=== PATIENT | female | born 1980 | race Caucasian/White ===

== ENCOUNTER 2023-04-30 22:52 | Observation (INO) | payer BC ==
[2023-04-30] MEDS ORDERED: Sodium Chloride 0.9% 1000 ML 1,000 ML ONE (23:24)
[2023-04-30] MEDS ORDERED: Zofran 4 MG/2 ML VIAL ONE (23:24)
[2023-04-30] MEDS ORDERED: MORPHINE SULFATE 4 MG INJ ONE (23:24)
[2023-04-30] MEDS: Zofran 4 MG/2 ML VIAL IV ONE (23:26)
[2023-04-30] MEDS: Sodium Chloride 0.9% 1000 ML 1,000 ML IV STA (23:29)
[2023-04-30] MEDS: MORPHINE SULFATE 4 MG INJ IV ONE (23:30)
--- NOTE | 2023-04-30 23:35 | ERPHSYRPT ---
- History of Present Illness Time Seen by Provider: 04/30/23 23:20 Historian: patient Exam Limitations: no limitations Physician History: 42yo f presents with RUQ abdominal pain, N/V that worsened today while at work roughly 3hrs ago. Pt reports hx of gallstones x 3-4mo w/ outpatient management, has not seen a general surgeon yet. Pt reports significant RUQ pain, diaph oresis, multiple episodes of NBNB emesis in the past 2h. Pt reports the pain radiates into her mid back and right shoulder. Pt currently denies cp, soa. Timing/Duration: today, sudden Activities at Onset: activity Quality: sharpness, stabbing Abdominal Pain Onset Location: RUQ, epigastric Pain Radiation: shoulder, back Severity of Pain-Max: severe Severity of Pain-Current: severe Modifying Factors: Improves With: nothing Associated Symptoms: diaphoresis, nausea, vomiting Previous symptoms: same symptoms as today Body Map: 1 - RUQ and epigastric pain 2 - mid back/scapula pain Allergies/Adverse Reactions: prednisone Allergy (Intermediate, Verified 04/30/23 23:11) Vomiting Home Medications: Docusate Sodium [Colace] 200 mg PO DAILY 04/30/23 [History] Folic Acid/Vit B Complex and C [Super B-Complex Folic-Vit C Tb] 400 mcg PO DAILY 04/30/23 [History] Losartan/Hydrochlorothiazide [Losartan-Hctz 50-12.5 mg Tab] 1 each PO DAILY 04/30/23 [History] Metformin HCl Xr 500 mg [Glucophage XR 500 MG] 1,000 mg PO DAILY 04/30/23 [History] Thyroid Med 5 mg PO DAILY 04/30/23 [History] Thyroid,Pork [Apple Peeler Operator Thyroid 120] 0.5 tab PO DAILY 04/30/23 [History] - Review of Systems Constitutional: Chills, No Fever Respiratory: No Symptoms Cardiac: No Symptoms Abdominal/Gastrointestinal: Abdominal Pain, Nausea, Vomiting Genitourinary Symptoms: No Symptoms - Female History Hx Now: No - Nursing Vital Signs Nursing Vital Signs: Initial Vital Signs Pulse Rate 97 H 04/30/23 23:11 Respiratory Rate 22 04/30/23 23:11 Blood Pressure 120/77 04/30/23 23:11 O2 Sat by Pulse Oximetry 100 04/30/23 23:11 Pain Scale Pain Intensity 10 - Physical Exam General Appearance: mild distress, alert Respiratory Exam: normal breath sounds, airway intact, No respiratory distress Cardiovascular Exam: normal heart sounds, tachycardia Gastrointestinal/Abdomen Exam: soft, normal bowel sounds, tenderness, No distention, No guarding, No rebound SpO2 Interpretation: normal SpO2: 100 O2 Delivery: Room Air Ordered Tests: Active Orders 24 hr Category Date Time Status IV Insertion STAT Care 04/30/23 23:20 Active Observation [Place in Observation] ROUTINE Care 05/01/23 01:52 Active ABDOMEN AND PELVIS W CONTRAST [CT] Stat Exams 04/30/23 23:21 Completed CBC W DIFF Stat Lab 04/30/23 23:20 Completed CMP Stat Lab 04/30/23 23:20 Completed CULTURE,URINE Stat Lab 04/30/23 23:20 Received LIPASE Stat Lab 04/30/23 23:20 Completed LIPID PROFILE Stat Lab 05/01/23 01:51 Ordered UA W/RFX UR CULTURE Stat Lab 04/30/23 23:20 Completed Transfer Order Routine Transfer 05/01/23 Ordered Medication Summary Generic Name Dose Route Start Last Admin Trade Name Freq PRN Reason Stop Dose Admin Sodium Chloride 1,000 mls @ 250 mls/hr 05/01/23 01:45 Sodium Chloride 0.9% 1000 Ml IV 05/31/23 01:44 .Q4H KIP Discontinued Medications Generic Name Dose Route Start Last Admin Trade Name Freq PRN Reason Stop Dose Admin Fentanyl Citrate 25 mcg 05/01/23 00:15 05/01/23 00:23 Fentanyl Citrate 100 Mcg/2 Ml* Vial IV 05/01/23 00:16 25 mcg STAT ONE Administration Fentanyl Citrate Confirm 05/01/23 00:21 Fentanyl Citrate 100 Mcg/2 Ml* Vial Administered 05/01/23 00:22 Dose 100 mcg .ROUTE .STK-MED ONE Hydromorphone HCl 1 mg 05/01/23 01:03 05/01/23 01:43 Hydromorphone 1 Mg/1ml Inj IV 05/01/23 01:04 1 mg STAT ONE Administration Hydromorphone HCl Confirm 05/01/23 01:42 Hydromorphone 1 Mg/1ml Inj Administered 05/01/23 01:43 Dose 1 mg .ROUTE .STK-MED ONE Sodium Chloride 1,000 mls @ 999 mls/hr 04/30/23 23:20 05/01/23 00:34 Sodium Chloride 0.9% 1000 Ml IV 05/01/23 00:20 Infused .Q1H1M STA Infusion Sodium Chloride Confirm 04/30/23 23:24 Sodium Chloride 0.9% 1000 Ml Administered 04/30/23 23:25 Dose 1,000 mls @ ud .ROUTE .STK-MED ONE Morphine Sulfate 4 mg 04/30/23 23:23 04/30/23 23:30 Morphine Sulfate 4 Mg/Ml Injection IV 04/30/23 23:24 4 mg STAT ONE Administration Morphine Sulfate Confirm 04/30/23 23:24 Morphine Sulfate 4 Mg/Ml Injection Administered 04/30/23 23:25 Dose 4 mg .ROUTE .STK-MED ONE Ondansetron HCl 4 mg 04/30/23 23:20 04/30/23 23:26 Ondansetron Hcl 4 Mg/2 Ml Vial IV 04/30/23 23:21 4 mg STAT ONE Administration Ondansetron HCl Confirm 04/30/23 23:24 Ondansetron Hcl 4 Mg/2 Ml Vial Administered 04/30/23 23:25 Dose 4 mg .ROUTE .STK-MED ONE Lab/Rad Data: Laboratory Result Diagrams 04/30/23 23:20 04/30/23 23:20 Laboratory Results 04/30/23 04/30/23 04/30/23 Range/Units 23:20 23:20 23:20 WBC 15.8 H (4.0-10.5) x10^3/uL RBC 5.23 (4.1-5.4) x10^6/uL Hgb 15.1 (12.0-16.0) g/dL Hct 45.2 (35-47) % MCV 86.4 (78-100) fL MCH 28.9 (26-32) pg MCHC 33.4 (32-36) g/dL RDW 11.9 (11.5-14.0) % Plt Count 476 H (150-450) x10^3/uL MPV 9.7 (7.5-11.0) fL Gran % 62.6 (36.0-66.0) % Immature Gran % (Auto) 0.7 H (0.00-0.4) % Nucleat RBC Rel Count 0.0 (0.00-0.1) % Eos # (Auto) 0.09 (0-0.5) x10^3/uL Immature Gran # (Auto) 0.11 H (0.00-0.03) x10^3u/L Absolute Lymphs (auto) 4.45 (1.0-4.6) x10^3/uL Absolute Monos (auto) 1.20 (0.0-1.3) x10^3/uL Absolute Nucleated RBC 0.00 (0.00-0.01) x10^3u/L Lymphocytes % 28.1 (24.0-44.0) % Monocytes % 7.6 (0.0-12.0) % Eosinophils % 0.6 (0.00-5.0) % Basophils % 0.4 (0.0-0.4) % Absolute Granulocytes 9.90 H (1.4-6.9) x10^3/uL Basophils # 0.06 (0-0.4) x10^3/uL Sodium 139 (137-145) mmol/L Potassium 3.2 L (3.5-5.1) mmol/L Chloride 102 (98-107) mmol/L Carbon Dioxide 26 (22-30) mmol/L Anion Gap 14.4 (5-15) MEQ/L BUN 14 (7-17) mg/dL Creatinine 0.77 (0.52-1.04) mg/dL Estimated GFR 98.1 ML/MIN Glucose 121 H (74-106) mg/dL Calcium 10.1 (8.4-10.2) mg/dL Total Bilirubin 2.70 H (0.2-1.3) mg/dL AST 288 H (14-36) U/L ALT 237 H (0-35) U/L Alkaline Phosphatase 165 H (38-126) U/L Serum Total Protein 8.6 H (6.3-8.2) g/dL Albumin 5.0 (3.5-5.0) g/dL Lipase [id number] H (23-300) U/L Urine Color Dark Yellow A (Yellow) Urine Appearance Cloudy A (Clear) Urine pH 7.0 (4.6-8.0) Ur Specific [place] 1.015 (1.005-1.030) Urine Protein 30 (Negative) Urine Glucose (UA) Negative (Negative) mg/dL Urine Ketones Negative (Negative) Urine Blood Negative (Negative) Urine Nitrite Negative (Negative) Urine Bilirubin Negative (Negative) Urine Urobilinogen 1.0 A (0.2) mg/dL Ur Leukocyte Esterase Small A (Negative) U Hyaline Cast (Auto) NONE SEEN (0-2) /LPF Urine Microscopic RBC 0-2 (0-5) /HPF Urine Microscopic WBC 6-10 A (0-5) /HPF Ur Epithelial Cells Many A (None Seen) /HPF Urine Bacteria Rare A (None Seen) /HPF Urine Culture Reflexed YES (NO) - Progress Progress: pain not gone completely Progress Note: 05/01/23 01:20 CT abd/pel 1. Mildly bulky and heterogenous pancreas with extensive peripancreatic fat stranding and free fluid consistent with acute pancreatitis. The score based on modified CT severity index is 4. Clinical correlation and follow-up is recommended. 2. Questionable wall calcification versus calculi in gallbladder fundus. 05/01/23 01:54 discussed admission for acute pancreatitis w/ Dr Meredith who accepts Will see patient in: hospital (observation) Counseled pt/family regarding: lab results, diagnosis, rad results Medical Desision Making - Discussion of managment Care discussed with:: hospitalist Reviewed:: Test results, Need for additional workup Agreed on:: Treatment plan, need for follow-up, place in obs Will see patient: in hospital - Diagnostic Testing Diagnostic test were ordered, analyzed, and reviewed by me: Yes Radiological Interpretation: Reviewed by me, Teleradiologist Report - Risk of complications The pt has a mod risk of morbidity or mortality based on: Need for prescription drug management The pt has a high risk of morbidity or mortality based on: Decision regarding hospitilization or escalation of hosp level of care - Departure Departure Disposition: Observation Clinical Impression: Acute pancreatitis Qualifiers: Pancreatitis type: unspecified pancreatitis type Acute pancreatitis complication: unspecified Qualified Code(s): K85.90 - Acute pancreatitis without necrosis or infection, unspecified Condition: Stable Critical Care Time: No [facility] - Follow up/PCP as directed
[2023-04-30 23:49] LABS: BASOPHIL % 0.4 % (0.0-0.4); Basophil (Absolute #) 0.06 x10^3/uL (0-0.4); Eosinophil % 0.6 % (0.00-5.0); Eosinophil (Absolute #) 0.09 x10^3/uL (0-0.5); Hematocrit 45.2 % (35-47); Hemoglobin 15.1 g/dL (12.0-16.0); IMMATURE GRAN # 0.11 x10^3u/L (0.00-0.03); IMMATURE GRAN % 0.7 % (0.00-0.4); Lymphocyte (Absolute #) 4.45 x10^3/uL (1.0-4.6); Lymphocytes % 28.1 % (24.0-44.0); Mean Cell Volume 86.4 fL (78-100); Mean Corpuscular Hemoglobin 28.9 pg (26-32); Mean Corpuscular Hgb Concent. 33.4 g/dL (32-36); Mean Platelet Volume 9.7 fL (7.5-11.0); Monocytes % 7.6 % (0.0-12.0); Neutrophil % 62.6 % (36.0-66.0); Platelet Count 476 x10^3/uL (150-450); Red Blood Count 5.23 x10^6/uL (4.1-5.4); Red Cell Distribution Width 11.9 % (11.5-14.0); White Blood Count 15.8 x10^3/uL (4.0-10.5)
[2023-05-01 00:05] LABS: ANION GAP 14.4 MEQ/L (5-15); BILIRUBIN,TOTAL 2.7 mg/dL (0.2-1.3); Calcium 10.1 mg/dL (8.4-10.2); Creatinine 1 0.77 mg/dL (0.52-1.04); EST GLOMERULAR FILTRATION RATE 98.1 ML/MIN; Potassium 3.2 mmol/L (3.5-5.1); Total Protein 8.6 g/dL (6.3-8.2)
[2023-05-01] MEDS ORDERED: SUBLIMAZE 100 MCG/2 ML ONE (00:21)
[2023-05-01] MEDS: SUBLIMAZE 100 MCG/2 ML IV ONE (00:23)
[2023-05-01 00:40] LABS: Appearance Cloudy (Clear); Bacteria Rare /HPF (None Seen); Bilirubin Negative (Negative); Blood Negative (Negative); Epithelial Cells Many /HPF (None Seen); Glucose, Urine Negative (Negative); Hyaline Casts NONE SEEN /LPF (0-2); Ketones Negative (Negative); Leukocyte Esterase Small (Negative); Nitrite Negative (Negative); Protein,Urine Dip 30 (Negative); RBC 0-2 /HPF (0-5); Specific Gravity 1.015 (1.005-1.030)
[2023-05-01 00:49] LABS: ADD URINE CULTURE? YES (NO)
--- NOTE | 2023-05-01 01:17 | XRAY ---
CLINICAL HISTORY: abdominal pain TECHNIQUE: Multiple axial sections of the abdomen and pelvis were acquired with intravenous contrast administration. Sagittal and coronal reformatted images were obtained. COMPARISON: None FINDINGS: Mildly bulky pancreas with heterogeneous enhancement. Extensive peripancreatic fat stranding and peripancreatic free fluid is seen. In addition, there is a few subcentimeter peripancreatic lymph nodes. The portal confluence and splenic veins are normal. Normal-sized liver showing homogenous enhancement. No focal or diffuse abnormalities were noted. No intrahepatic duct dilatation is seen. The portal vein is normal. The gallbladder is mildly distended. Two calcific foci are seen at the fundus of the gallbladder and may reflect adherent calculi versus wall calcification. The common bile duct is normal. Both adrenal glands and spleen appear normal. Both kidneys are normal in size, location, and axis. No hydronephrosis, calculus or cyst is seen on either side. The urinary bladder is normally distended. No abnormal wall thickening or calculus is seen. The uterus and both adnexa are within normal limits. There is mild parametrial vascular congestion. The stomach and distal esophagus appear unremarkable. There is mild wall thickening of the second part of the duodenum, likely reactionary. Otherwise, the small bowel loops appear grossly normal. No acute bowel obstruction or ileus. The large bowel loops distal to the ascending colon are collapsed. The appendix is not discretely identified however there is no signs of the lower abdominal quadrant to suggest the acute process. The vascular structures enhance normally. No evidence of enlarged mesenteric lymph nodes. No gross ascites or free intraperitoneal air is seen. Visualized bones are grossly normal. Both lung bases are clear. The cardiac size is normal. IMPRESSION: 1. Mildly bulky and heterogenous pancreas with extensive peripancreatic fat stranding and free fluid consistent with acute pancreatitis. The score based on modified CT severity index is 4. Clinical correlation and follow-up is recommended. 2. Questionable wall calcification versus calculi in gallbladder fundus. [facility] ER was called at [phone] at 12:11 AM COMPUTER SYSTEMS INTEGRATOR, 04/29/2023 and results were verbally communicated to the [facility]. Electronically Signed by: Dakota Wilkerson MD. (05/01/2023 01:12:51 EST)
[2023-05-01] MEDS ORDERED: Hydromorphone 1 mg/ml Injection ONE (01:42)
[2023-05-01] MEDS: Hydromorphone 1 mg/ml Injection IV ONE (01:43)
--- NOTE | 2023-05-01 02:46 | PCM.HP ---
History of Present Illness - Chief Complaint Chief Complaint: acute pancreatitis History of Present Illness: is a 42 year old female with hx of metabolic syndrome, HTN, hypothyroidism with recent diagnosis of gallstones (203months prior) with conservative management and follow-up with surgery outpt. She came in tonight with c/o abdominal pain, mainly in RUQ qith radiation to upper back associated with nausea and vomiting. No diarrhea. No bloody emesis. No fever, chills, sweats. No SOB nor chest pain. The abominal pain has been coming and going over the past 1.5 months In ER work-up, lipase was 124K and CT abd confirms pancreatitis without CBD dilation nor obvious stones. So, she is being admitted for acute pancreatitis I saw her via telemedicine. She is resting, on RA, not septic looking. - Review of Systems Constitutional: No Symptoms Eyes: No Symptoms Ears, Nose, & Throat: No Symptoms Respiratory: No Symptoms Cardiac: No Symptoms Abdominal/Gastrointestinal: Abdominal Pain Genitourinary Symptoms: No Symptoms Musculoskeletal: No Symptoms Skin: No Symptoms Neurological: No Symptoms Psychological: No Symptoms Endocrine: No Symptoms Hematologic/Lymphatic: No Symptoms Immunological/Allergic: No Symptoms Medications & Allergies Home Medications: Home Medication List Docusate Sodium [Colace] 200 mg PO DAILY 04/30/23 [History Confirmed 04/30/23] Folic Acid/Vit B Complex and C [Super B-Complex Folic-Vit C Tb] 400 mcg PO DAILY 04/30/23 [History Confirmed 04/30/23] Losartan/Hydrochlorothiazide [Losartan-Hctz 50-12.5 mg Tab] 1 each PO DAILY 04/30/23 [History Confirmed 04/30/23] Metformin HCl Xr 500 mg [Glucophage XR 500 MG] 1,000 mg PO DAILY 04/30/23 [History Confirmed 04/30/23] Thyroid Med 5 mg PO DAILY 04/30/23 [History Confirmed 04/30/23] Thyroid,Pork [Cable Installer Repairer Thyroid 120] 0.5 tab PO DAILY 04/30/23 [History Confirmed 04/30/23] Allergies/Adverse Reactions: Allergies Allergy/AdvReac Type Severity Reaction Status Date / Time prednisone Allergy Intermediate Vomiting Verified 04/30/23 23:11 - Past Medical History Past Medical History: Yes Neurological History: No Pertinent History ENT History: No Pertinent History Cardiac History: High Cholesterol, Hypertension Respiratory History: Asthma Endocrine Medical History: Hypothyroidism, Other Musculoskelatal History: No Pertinent History GI Medical History: Gallbladder Disease History: No Pertinent History Pyscho-Social History: Depression Reproductive Disorders: No Pertinent History Comment: adi's. prediabetes - Female History Hx Last Menstrual Period: 04/15/23 Are you now?: No - Past Surgical History Past Surgical History: Yes Neuro Surgical History: No Pertinent History Cardiac History: No Pertinent History Respiratory Surgery: No Pertinent History GI Surgical History: No Pertinent History Genitourinary Surgical Hx: No Pertinent History Musculskeletal Surgical Hx: Orthopedic Surgery Female Surgical History: Tubal Ligation Other Surgical History: TKR bilat eyes. neck radiculopathy C6-C7 with titanium place in neck Significant Family History: no pertinent family hx - Social History Smoking Status: Former smoker Exposure to second hand smoke: No Alcohol: Occasionally Drug Use: none - Physical Exam Vital Signs: Vital Signs - 24 hr Temp Pulse Resp BP BP Pulse Ox 05/01/23 02:30 93 H 20 166/97 98 05/01/23 02:00 100 H 16 151/94 98 05/01/23 01:58 100 05/01/23 01:30 89 20 143/108 94 L 05/01/23 01:00 92 H 18 134/105 97 05/01/23 00:30 89 20 153/102 98 05/01/23 00:25 92 H 18 145/95 100 04/30/23 23:30 93 H 18 113/87 99 04/30/23 23:14 97.5 F 107 H 24 120/77 98 04/30/23 23:11 97 H 22 120/77 100 General Appearance: no apparent distress Neurologic Exam: alert, oriented x 3, cooperative Eye Exam: PERRL/EOMI Ears, Nose, Throat Exam: normal ENT inspection Neck Exam: normal inspection, full range of motion Respiratory Exam: normal breath sounds, lungs clear Cardiovascular Exam: regular rate/rhythm, normal heart sounds Gastrointestinal/Abdomen Exam: soft, normal bowel sounds, tenderness Pelvic Exam: deferred Rectal Exam: deferred Back Exam: normal inspection Extremity Exam: normal inspection Skin Exam: normal color Results - Labs Lab/Micro Results: Lab Results-Last 24 Hours 04/30/23 04/30/23 04/30/23 Range/Units 23:20 23:20 23:20 WBC 15.8 H (4.0-10.5) x10^3/uL RBC 5.23 (4.1-5.4) x10^6/uL Hgb 15.1 (12.0-16.0) g/dL Hct 45.2 (35-47) % MCV 86.4 (78-100) fL MCH 28.9 (26-32) pg MCHC 33.4 (32-36) g/dL RDW 11.9 (11.5-14.0) % Plt Count 476 H (150-450) x10^3/uL MPV 9.7 (7.5-11.0) fL Gran % 62.6 (36.0-66.0) % Immature Gran % (Auto) 0.7 H (0.00-0.4) % Nucleat RBC Rel Count 0.0 (0.00-0.1) % Eos # (Auto) 0.09 (0-0.5) x10^3/uL Immature Gran # (Auto) 0.11 H (0.00-0.03) x10^3u/L Absolute Lymphs (auto) 4.45 (1.0-4.6) x10^3/uL Absolute Monos (auto) 1.20 (0.0-1.3) x10^3/uL Absolute Nucleated RBC 0.00 (0.00-0.01) x10^3u/L Lymphocytes % 28.1 (24.0-44.0) % Monocytes % 7.6 (0.0-12.0) % Eosinophils % 0.6 (0.00-5.0) % Basophils % 0.4 (0.0-0.4) % Absolute Granulocytes 9.90 H (1.4-6.9) x10^3/uL Basophils # 0.06 (0-0.4) x10^3/uL Sodium 139 (137-145) mmol/L Potassium 3.2 L (3.5-5.1) mmol/L Chloride 102 (98-107) mmol/L Carbon Dioxide 26 (22-30) mmol/L Anion Gap 14.4 (5-15) MEQ/L BUN 14 (7-17) mg/dL Creatinine 0.77 (0.52-1.04) mg/dL Estimated GFR 98.1 ML/MIN Glucose 121 H (74-106) mg/dL Calcium 10.1 (8.4-10.2) mg/dL Total Bilirubin 2.70 H (0.2-1.3) mg/dL AST 288 H (14-36) U/L ALT 237 H (0-35) U/L Alkaline Phosphatase 165 H (38-126) U/L Serum Total Protein 8.6 H (6.3-8.2) g/dL Albumin 5.0 (3.5-5.0) g/dL Lipase [id number] H (23-300) U/L Urine Color Dark Yellow A (Yellow) Urine Appearance Cloudy A (Clear) Urine pH 7.0 (4.6-8.0) Ur Specific [place] 1.015 (1.005-1.030) Urine Protein 30 (Negative) Urine Glucose (UA) Negative (Negative) mg/dL Urine Ketones Negative (Negative) Urine Blood Negative (Negative) Urine Nitrite Negative (Negative) Urine Bilirubin Negative (Negative) Urine Urobilinogen 1.0 A (0.2) mg/dL Ur Leukocyte Esterase Small A (Negative) U Hyaline Cast (Auto) NONE SEEN (0-2) /LPF Urine Microscopic RBC 0-2 (0-5) /HPF Urine Microscopic WBC 6-10 A (0-5) /HPF Ur Epithelial Cells Many A (None Seen) /HPF Urine Bacteria Rare A (None Seen) /HPF Urine Culture Reflexed YES (NO) - Radiology Impressions Radiology Exams & Impressions: Radiology Procedures Category Date Time Status ABDOMEN AND PELVIS W CONTRAST [CT] Stat Exams 04/30/23 23:21 Completed Assessment/Plan (1) Acute pancreatitis Current Visit: Yes Status: Acute Qualifiers: Pancreatitis type: unspecified pancreatitis type Acute pancreatitis complication: unspecified Qualified Code(s): K85.90 - Acute pancreatitis without necrosis or infection, unspecified Assessment & Plan: Lipase 124K, CT confirms. However, it did not mention cholelithiasis nor cholecystitis. Still concerning for obstructive process given recent gallstones diagnosis. If available, will likely need MRCP, GI consult. For tonight, NPO, pain manage Check lipids Code(s): K85.90 - ACUTE PANCREATITIS WITHOUT NECROSIS OR INFECTION, UNSP (2) Leukocytosis Current Visit: Yes Status: Acute Assessment & Plan: WBC 15K. Likelyua stress reaction. No obvious source of infection seen. Monitor WBC trend Code(s): D72.829 - ELEVATED WHITE BLOOD CELL COUNT, UNSPECIFIED (3) Cholelithiasis Current Visit: Yes Status: Acute Assessment & Plan: Recent diagnosis - CT abd tonight did not mention cholecystitis (4) Hypokalemia Current Visit: Yes Status: Acute Assessment & Plan: K is 3.2, low due to GI loss from N/V. Will start LR and monitor K and replace as needed Code(s): E87.6 - HYPOKALEMIA (5) Essential (primary) hypertension Current Visit: Yes Status: Acute Assessment & Plan: Resume home meds. Monitor BP trend and adjust as needed Code(s): I10 - ESSENTIAL (PRIMARY) HYPERTENSION (6) Hypothyroidism Current Visit: Yes Status: Acute Assessment & Plan: Resume home thyroid meds Code(s): E03.9 - HYPOTHYROIDISM, UNSPECIFIED Telemedicine Encounter - Telemedicine Encounter Telemedicine Encounter: The entirety of this encounter was performed via Telemedicine" The pt gave me verbal consent to have this telemedicine visit
[2023-05-01] MEDS ORDERED: HUMALOG SQ PRN (02:51)
[2023-05-01] MEDS ORDERED: TRANDATE 100MG/20 ML MDV IV PRN (02:53)
[2023-05-01] MEDS ORDERED: Hydromorphone 1 mg/ml Injection IV PRN (02:53)
[2023-05-01] MEDS: Hydromorphone 1 mg/ml Injection IV PRN ×3 (03:24→21:43)
[2023-05-01] MEDS: Lactated Ringers 1,000 ML IV SCH (03:24)
[2023-05-01] MEDS: Zofran 4 MG/2 ML VIAL IV PRN (03:26)
[2023-05-01] MEDS: Sodium Chloride 0.9% 1000 ML 1,000 ML IV SCH (03:42)
[2023-05-01 05:33] LABS: Hematocrit 45.1 % (35-47); Hemoglobin 14.8 g/dL (12.0-16.0); Mean Cell Volume 87.4 fL (78-100); Mean Corpuscular Hemoglobin 28.7 pg (26-32); Mean Corpuscular Hgb Concent. 32.8 g/dL (32-36); Mean Platelet Volume 10.2 fL (7.5-11.0); Platelet Count 436 x10^3/uL (150-450); Red Blood Count 5.16 x10^6/uL (4.1-5.4); Red Cell Distribution Width 12.1 % (11.5-14.0); White Blood Count 20.4 x10^3/uL (4.0-10.5)
[2023-05-01 06:10] LABS: ALBUMIN 4.4 g/dL (3.5-5.0); ANION GAP 12.7 MEQ/L (5-15); BILIRUBIN,TOTAL 3.2 mg/dL (0.2-1.3); Creatinine 1 0.68 mg/dL (0.52-1.04); EST GLOMERULAR FILTRATION RATE 110.8 ML/MIN; Potassium 3.7 mmol/L (3.5-5.1); Risk Ratio 4.6; Total Protein 7.4 g/dL (6.3-8.2)
[2023-05-01] MEDS ORDERED: TRANDATE 20 MG/4 ML SYRINGE IV PRN (07:28)
[2023-05-01] MEDS ORDERED: Compazine 10 MG/2 ML IM PRN (08:17)
[2023-05-01] MEDS: Compazine 10 MG/2 ML IV PRN (08:36)
[2023-05-01 08:51] LABS: AMYLASE 802 U/L (30-110); ETHYL ALCOHOL < 10 mg/dL (0-10)
[2023-05-01 09:21] LABS: LIPASE 8604 U/L (23-300)
[2023-05-01] MEDS ORDERED: HEPARIN 5000 UNITS/0.5 ML (HIGH RISK MED) IV PRN (09:59)
[2023-05-01] MEDS ORDERED: NON-FORMULARY ITEM (Losartan/Hydrochlorothiazide [Losartan-Hctz 50-12.5 Mg Tab] 1 EACH Tab PO SCH (10:00)
[2023-05-01] MEDS ORDERED: Heparin 25,000 units/D5W: USE ORDER SET PROTO 25,000 UNITS/250 ML BAG IV SCH (10:00)
[2023-05-01] MEDS ORDERED: THYROID MED PO SCH (10:00)
[2023-05-01] MEDS ORDERED: THYROID PORK 120 MG PO SCH (10:00)
--- NOTE | 2023-05-01 10:17 | XRAY ---
Indication: Right upper quadrant pain. Pancreatitis. Gallstone. Two-dimensional right upper quadrant abdominal sonogram performed. Comparison: None Diffusely edematous prominent pancreas with small peripancreatic fluid favoring CT proven acute pancreatitis. No focal solid/cystic pancreas mass. Gallbladder normally distended with multiple tiny gallstones in the dependent portion, largest 6-7 mm. Abnormal gallbladder wall thickening up to 3.3 mm. No pericholecystic fluid. Common bile duct prominent measuring 8.1 mm. No intrahepatic biliary distention. Remaining visualized liver and right kidney are sonographically unremarkable. Right kidney measures 10.4 x 6.0 x 4.9 cm. Impression: 1. Cholelithiasis with gallbladder wall thickening. Rule out chronic cholecystitis. 2. Prominent common bile duct better evaluated with MRCP or ERCP. 3. CT proven pancreatitis.
[2023-05-01 10:36] LABS: Hematocrit 47.1 % (35-47); Hemoglobin 15.5 g/dL (12.0-16.0); Mean Cell Volume 87.5 fL (78-100); Mean Corpuscular Hemoglobin 28.8 pg (26-32); Mean Corpuscular Hgb Concent. 32.9 g/dL (32-36); Mean Platelet Volume 9.7 fL (7.5-11.0); Platelet Count 418 x10^3/uL (150-450); Red Blood Count 5.38 x10^6/uL (4.1-5.4); Red Cell Distribution Width 12.3 % (11.5-14.0); White Blood Count 19.8 x10^3/uL (4.0-10.5)
[2023-05-01] MEDS: HOLD METFORMIN PRODUCTS FOR 48 HOURS MC SCH (10:45)
[2023-05-01 10:51] LABS: INR 1.13 (0.8-3.0); PROTIME 12.2 SECONDS (9.4-12.5); PTT 24.2 SECONDS (25.1-36.5)
[2023-05-01] MEDS: HYDRODIURIL PO SCH (11:05)
[2023-05-01] MEDS: COZAAR PO SCH (11:05)
[2023-05-01] MEDS: NON-FORMULARY ITEM PO SCH ×2 (11:05)
[2023-05-01] MEDS: HEPARIN 5000 UNITS/0.5 ML (HIGH RISK MED) IV STA (11:31)
[2023-05-01] MEDS: Sodium Chloride 0.9% 1000 ML 1,000 ML IV STA ×3 (12:36→18:30)
--- NOTE | 2023-05-01 13:43 | XRAY ---
Indication: MRCP. Abdominal pain and vomiting. CT proven acute pancreatitis. Conventional MRCP performed. Comparison: None Gallbladder mildly distended with a few tiny gallstones in the dependent portion. Common bile duct measures 2-3 mm. Remaining biliary tree normal in course and caliber without filling defect. Pancreatic duct not distended. Diffusely prominent pancreas with peripancreatic and diffuse mesenteric edema favoring acute pancreatitis. Small abdominal free fluid presumed reactive. No walled off fluid collection. Noncontrasted stomach and visualized bowel loops appear nonobstructed. Visualized liver, spleen, adrenal glands, kidneys, aorta, and IVC are unremarkable. Impression: 1. Diffuse pancreatitis with free fluid as detailed. 2. Remaining MRCP is negative.
[2023-05-01 17:05] LABS: A-aADO2 32; ABG POTASSIUM 4.4 (3.5-5.1); ABG SITE RBA; ALLEN TEST OK? Yes; ARTERIAL BLD GAS O2 SATURATION 98.8 % (95-100); ARTERIAL BLOOD GAS BASE EXCESS -2.9 (-2.0-2.0); ARTERIAL BLOOD GAS FIO2 28 %; ARTERIAL BLOOD GAS PCO2 47 mmHg (35-45); ARTERIAL BLOOD GAS PO2 109 mmHg (75-100); ARTERIAL BLOOD GAS pH 7.31 (7.35-7.45); CARBOXYHEMOGLOBIN 1.4 % THgb (0.0-6.9); HCO3- 23.7 (22-28); HGB O2 SAT 96.5 g/dF (94-100); Methhemoglobin 0.9 % (1.4-1.5); paO2 pAO1 0.77
[2023-05-01 17:06] LABS: INFLUENZA A NEGATIVE (NEGATIVE); INFLUENZA B NEGATIVE (NEGATIVE); RESPIRATORY SYNCTIAL VIRUS NEGATIVE (NEGATIVE); SARS-CoV-2 Xpert Express NEGATIVE (NEGATIVE)
[2023-05-01] MEDS ORDERED: Sodium Chloride 0.9% 1000 ML 1,000 ML ONE (17:52)
[2023-05-01] MEDS: Unasyn 1.5GM Vial*** 1.5 G in Sodium Chloride 100ML MINI-BAG PLUS 100 ML IV SCH (17:55)
[2023-05-01 19:05] VITALS: RESP 16; TEMP 97.1
[2023-05-01 23:22] VITALS: BP 147/97; PULSE 126; O2SAT 96
--- NOTE | 2023-05-02 09:13 | PCM.DS ---
Discharge Summary Date of Admission: 05/01/23 02:52 Date of Discharge: 05/02/23 Admitting Physician: BRADEN CARDENAS DO Primary Care Provider: CHRISTAL MANZANARES Allergies Allergies prednisone Allergy (Intermediate, Verified 05/01/23 03:42) Vomiting Hospital Summary - Hospital Course Hospital Course: 05/02 is a 42 year old female with hx of metabolic syndrome, HTN, hypothyroidism with recent diagnosis of gallstones (203months prior) with co nservative management and follow-up with surgery outpt. She came in on 05/01 with c/o abdominal pain, mainly in RUQ with radiation to upper back associated with nausea and vomiting. No diarrhea. No bloody emesis. No fever, chills, sweats. No SOB nor chest pain. The abdominal pain has been coming and going over the past 1.5 months. ER work-up, lipase was 124K and CT abd confirms pancreatitis without CBD dilation nor obvious stones. So, she was admitted for acute pancreatitis. Us continued to show stones w/o obstruction. MRCP did not show any acute concerns. Lactic acid continues to increase with IVF boluses and IVF. She continues to be in quite a bit of pain despite IV pain meds. Pt [facility]. She denies CP, SOB. - Vitals & Intake/Output Vital Signs: Vital Signs Temperature 97.1 F 05/01/23 19:04 Pulse Rate 126 H 05/01/23 23:22 Respiratory Rate 16 05/02/23 00:00 Blood Pressure 147/97 05/01/23 23:22 O2 Sat by Pulse Oximetry 96 05/01/23 23:22 Intake & Output: Intake & Output 04/29/23 04/30/23 05/01/23 05/02/23 11:59 11:59 11:59 11:59 Intake Total 25 Output Total 800 Balance -800 25 Weight 82.9 kg - Lab Result Diagrams: 05/01/23 10:20 05/01/23 04:36 Lab Results-Last 24 Hrs: Lab Results-Last 24 Hours 05/01/23 05/01/23 05/01/23 Range/Units 05:32 09:34 10:20 WBC 19.8 H (4.0-10.5) x10^3/uL RBC 5.38 (4.1-5.4) x10^6/uL Hgb 15.5 (12.0-16.0) g/dL Hct 47.1 H (35-47) % MCV 87.5 (78-100) fL MCH 28.8 (26-32) pg MCHC 32.9 (32-36) g/dL RDW 12.3 (11.5-14.0) % Plt Count 418 (150-450) x10^3/uL MPV 9.7 (7.5-11.0) fL PT (9.4-12.5) SECONDS INR (0.8-3.0) APTT (25.1-36.5) SECONDS Puncture Site pCO2 (35-45) mmHg pO2 (75-100) mmHg Base Excess (-2.0-2.0) O2 Saturation (94-100) g/dF ABG pH (7.35-7.45) ABG HCO3 (22-28) ABG O2 Sat (Measured) (95-100) % Ran Test A-a Gradient a/A Ratio Hemoglobin Carboxyhemoglobin (0.0-6.9) % THgb Methemoglobin (1.4-1.5) % Potassium (3.5-5.1) Temperature C POC O2 Flow Rate % Lactic Acid 2.8 H (0.4-2.0) Amylase 802 H (30-110) U/L Lipase 8604 H (23-300) U/L Ethyl Alcohol < 10 (0-10) mg/dL Influenza Type A Ag (NEGATIVE) Influenza Type B Ag (NEGATIVE) RSV (PCR) (NEGATIVE) SARS-CoV-2 (PCR) (NEGATIVE) 05/01/23 05/01/23 05/01/23 Range/Units 10:20 14:15 14:30 WBC (4.0-10.5) x10^3/uL RBC (4.1-5.4) x10^6/uL Hgb (12.0-16.0) g/dL Hct (35-47) % MCV (78-100) fL MCH (26-32) pg MCHC (32-36) g/dL RDW (11.5-14.0) % Plt Count (150-450) x10^3/uL MPV (7.5-11.0) fL PT 12.2 (9.4-12.5) SECONDS INR 1.13 (0.8-3.0) APTT 24.2 L 25.6 (25.1-36.5) SECONDS Puncture Site pCO2 (35-45) mmHg pO2 (75-100) mmHg Base Excess (-2.0-2.0) O2 Saturation (94-100) g/dF ABG pH (7.35-7.45) ABG HCO3 (22-28) ABG O2 Sat (Measured) (95-100) % Ran Test A-a Gradient a/A Ratio Hemoglobin Carboxyhemoglobin (0.0-6.9) % THgb Methemoglobin (1.4-1.5) % Potassium (3.5-5.1) Temperature C POC O2 Flow Rate % Lactic Acid 3.0 H (0.4-2.0) Amylase (30-110) U/L Lipase (23-300) U/L Ethyl Alcohol (0-10) mg/dL Influenza Type A Ag (NEGATIVE) Influenza Type B Ag (NEGATIVE) RSV (PCR) (NEGATIVE) SARS-CoV-2 (PCR) (NEGATIVE) 05/01/23 05/01/23 05/01/23 Range/Units 16:18 16:47 16:48 WBC (4.0-10.5) x10^3/uL RBC (4.1-5.4) x10^6/uL Hgb (12.0-16.0) g/dL Hct (35-47) % MCV (78-100) fL MCH (26-32) pg MCHC (32-36) g/dL RDW (11.5-14.0) % Plt Count (150-450) x10^3/uL MPV (7.5-11.0) fL PT (9.4-12.5) SECONDS INR (0.8-3.0) APTT (25.1-36.5) SECONDS Puncture Site RBA pCO2 47 H (35-45) mmHg pO2 109 H (75-100) mmHg Base Excess -2.9 L (-2.0-2.0) O2 Saturation 96.5 (94-100) g/dF ABG pH 7.31 L (7.35-7.45) ABG HCO3 23.7 (22-28) ABG O2 Sat (Measured) 98.8 (95-100) % Ran Test Yes A-a Gradient 32 a/A Ratio 0.77 Hemoglobin 15.0 Carboxyhemoglobin 1.4 (0.0-6.9) % THgb Methemoglobin 0.9 L (1.4-1.5) % Potassium 4.4 (3.5-5.1) Temperature 37.0 C POC O2 Flow Rate 28 % Lactic Acid 2.5 H (0.4-2.0) Amylase (30-110) U/L Lipase (23-300) U/L Ethyl Alcohol (0-10) mg/dL Influenza Type A Ag NEGATIVE (NEGATIVE) Influenza Type B Ag NEGATIVE (NEGATIVE) RSV (PCR) NEGATIVE (NEGATIVE) SARS-CoV-2 (PCR) NEGATIVE (NEGATIVE) 05/01/23 05/01/23 Range/Units 18:20 21:55 WBC (4.0-10.5) x10^3/uL RBC (4.1-5.4) x10^6/uL Hgb (12.0-16.0) g/dL Hct (35-47) % MCV (78-100) fL MCH (26-32) pg MCHC (32-36) g/dL RDW (11.5-14.0) % Plt Count (150-450) x10^3/uL MPV (7.5-11.0) fL PT (9.4-12.5) SECONDS INR (0.8-3.0) APTT 26.4 26.4 (25.1-36.5) SECONDS Puncture Site pCO2 (35-45) mmHg pO2 (75-100) mmHg Base Excess (-2.0-2.0) O2 Saturation (94-100) g/dF ABG pH (7.35-7.45) ABG HCO3 (22-28) ABG O2 Sat (Measured) (95-100) % Ran Test A-a Gradient a/A Ratio Hemoglobin Carboxyhemoglobin (0.0-6.9) % THgb Methemoglobin (1.4-1.5) % Potassium (3.5-5.1) Temperature C POC O2 Flow Rate % Lactic Acid (0.4-2.0) Amylase (30-110) U/L Lipase (23-300) U/L Ethyl Alcohol (0-10) mg/dL Influenza Type A Ag (NEGATIVE) Influenza Type B Ag (NEGATIVE) RSV (PCR) (NEGATIVE) SARS-CoV-2 (PCR) (NEGATIVE) Micro Results-Entire Visit: Microbiology 04/30/23 23:20 Urine Culture - Final Urine, Void MIXED JOSE; 3 OR MORE TYPES. NO PREDOMINANT ORGANISM. NO FURTHER WORKUP. PLEASE RESUBMIT IF CLINICALLY INDICATED. - Radiology Exams Ordered Rad Exams-Entire Visit: Radiology Procedures Category Date Time Status ABDOMEN AND PELVIS W CONTRAST [CT] Stat Exams 04/30/23 23:21 Completed MRI ABD W/O CONTRAST [MRI] Routine Exams 05/01/23 07:50 Completed US ABDOMEN LIMITED [ABDOMINAL-LIMITED] [US] Routine Exams 05/01/23 07:39 Co mpleted - Procedures and Test Procedures and Tests throughout Hospitalization: Therapy Orders & Screens 05/01/23 11:45 Oxygen NASAL CANNULA 2 lpm Comment: Diagnosis: acute pancreatitis Discharge Exam General Appearance: no apparent distress, alert Neurologic Exam: alert, oriented x 3, cooperative, normal mood/affect, nml cerebellar function, sensation nml, No motor deficits Eye Exam: PERRL, EOMI, eyes nml inspection Ears, Nose, Throat Exam: normal ENT inspection, pharynx normal, moist mucous membranes Neck Exam: normal inspection, non-tender, supple, full range of motion Respiratory Exam: normal breath sounds, lungs clear, No respiratory distress Cardiovascular Exam: regular rate/rhythm, normal heart sounds Gastrointestinal/Abdomen Exam: soft, tenderness, guarding, No mass Pelvic Exam: deferred Rectal Exam: deferred Back Exam: normal inspection, normal range of motion, No CVA tenderness, No vertebral tenderness Extremity Exam: normal inspection, normal range of motion Skin Exam: normal color, warm, dry Final Diagnosis/Problem List - Final Discharge Diagnosis/Problem (1) Sepsis Status: Acute Assessment & Plan: - 2:2 pancreatitis - WBC 19.8- going up - unasyn started for possible pancreatic infection - IVF - Multiple IVF boluses. - Lactate > 2 - HR > 90 - WBC > 12 - UC negative (2) Acute pancreatitis Status: Acute Assessment & Plan: - No prior hx - no ETOH use - WBC 19.8- going up - unasyn started for possible pancreatic infection - IVF - Multiple IVF boluses. - US abd, MRI abd, CT abd/ pelvis reviewed - TX to higher level [facility] care[facility] - narcotic pain control - Cont. pulse ox and O2 @ 2LNC needed 2:2 narcotic pain meds. Code(s): K85.90 - ACUTE PANCREATITIS WITHOUT NECROSIS OR INFECTION, UNSP (3) Elevated liver enzymes Status: Acute Assessment & Plan: - 2:2 pancreatitis - IVF- NPO - labs improving slowly Code(s): R74.8 - ABNORMAL LEVELS OF OTHER SERUM ENZYMES (4) Hypokalemia Status: Resolved Assessment & Plan: - resolved 05/01 Code(s): E87.6 - HYPOKALEMIA (5) Cholelithiasis Status: Acute Assessment & Plan: - Chronic - Seen on US (6) Essential (primary) hypertension Status: Acute Assessment & Plan: - BP controlled Code(s): I10 - ESSENTIAL (PRIMARY) HYPERTENSION (7) Leukocytosis Status: Acute Assessment & Plan: - 2:2 pancreatitis, stress reaction - Possible infection started unasyn Code(s): D72.829 - ELEVATED WHITE BLOOD CELL COUNT, UNSPECIFIED - Discharge Discharge Date: 05/02/23 (@ 02:15 am) Disposition: DC TO OTHER HOSP Condition: Stable Prescriptions: Continue Thyroid,Pork [Tin Worker Thyroid] 0.5 tab PO DAILY Folic Acid/Vit B Complex and C [Super B Complex Tablet] 400 mcg PO DAILY Docusate Sodium [Colace] 200 mg PO DAILY Metformin HCl Xr 500 mg [Glucophage XR 500 MG] 1,000 mg PO DAILY Losartan/Hydrochlorothiazide [Losartan-Hctz 50-12.5 mg Tab] 1 each PO DAILY Thyroid Med 5 mg PO DAILY Liothyronine Sodium 5 mcg PO BID Forms: Transfer Record Inter-[employer]ency
== END 2023-05-02 02:15 ==
LOC: ED 22:52 → MED SURG 05-01 02:52
PROVIDERS: ADMIT Internal Medicine; ATTEND Internal Medicine
DX: A41.9 Sepsis, unspecified organism (principal); K85.90 Acute pancreatitis without necrosis or infection, unspecified; R74.8 Abnormal levels of other serum enzymes; E87.6 Hypokalemia; K80.20 Calculus of gallbladder without cholecystitis without obstruction; I10 Essential (primary) hypertension; D72.829 Elevated white blood cell count, unspecified; E03.9 Hypothyroidism, unspecified; E78.5 Hyperlipidemia, unspecified; Z79.899 Other long term (current) drug therapy; Z20.828 Contact with and (suspected) exposure to other viral communicable diseases
CPT/HCPCS: 0241U; 36000; 36415; 36600; 74177; 74181; 76705; 80053; 80061; 81001; 82077; 82150; 82375; 82803; 83605; 83690; 83721; 85025; 85027; 85610; 85730; 87086; 93268; 94762; 96360; 96374; 96375; 99285; G0378; Q3014; J0295; J1170; J2270; J2405; J3010